=== PATIENT | female | born 2005 | race Caucasian/White ===

== ENCOUNTER 2023-02-23 15:20 | Outpatient (OUT) | payer OTHER, SELFPAY ==
[2023-02-23 15:37] LABS: Basophils Percent Auto 0.1 % (0.2-2.0); Eosinophils Percent Auto 0.4 % (0.9-7.0); Hematocrit 31.9 % (36.0-48.0); Hemoglobin 10.3 g/dL (12.0-16.0); Immature Granulocytes Abs Auto 0.06 10^3/uL (0.00-0.03); Immature Granulocytes Pct Auto 0.7 % (0.0-0.5); Lymphocytes Absolute Auto 2.2 10^3/uL (1.2-3.8); Lymphocytes Percent Auto 24.4 % (20.5-60.0); Mean Corpuscular HGB Conc 32.3 g/dL (29.9-35.2); Mean Corpuscular Hemoglobin 26.3 pg (26.7-34.0); Mean Corpuscular Volume 81.6 fL (81.0-99.0); Mean Platelet Volume 10.2 fL (9.5-13.5); Monocytes Absolute Auto 0.7 10^3/uL (0.3-0.8); Monocytes Percent Auto 8.1 % (1.7-12.0); Neutrophils Absolute Auto 5.9 10^3/uL (1.4-6.5); Neutrophils Percent Auto 66.3 % (43.0-75.0); Platelet Count 259 10^3/uL (150-450); Red Blood Count 3.91 10^6/uL (4.20-5.40); Red Cell Distribution Width 13.9 % (11.0-15.0); White Blood Count 8.9 10^3/uL (4.0-11.0)
== END 2023-02-23 15:21 ==
PROVIDERS: PCP Obstetrics & Gynecology; Visit Provider Physician Assistant
DX: Z34.93 Encounter for supervision of normal pregnancy, unspecified, third trimester (principal)
CPT/HCPCS: 36415; 85025

== ENCOUNTER 2023-03-26 09:39 | Outpatient (OUT) | payer OTHER, SELFPAY ==
--- NOTE | 2023-03-26 09:42 | US_ITS ---
[address] [address] Patient Name: BENJY ZEPEDA MRN: [id number] date: 2005 Sex: F Assigned Patient Location: US Current Patient Location: US Accession/Order Number: [id number] Exam Date: 03/26/2023 09:43 Report Date: 03/26/2023 15:56 At the request of: KATIE BIRMINGHAM Procedure: US OB growth EXAMINATION: US OB growth HISTORY: LGA COMPARISON: Ultrasound anatomy 12/16/2022 FINDINGS: Heart Rate: 136.0 bpm Number: 1.0 Position: CEPHALIC Amniotic Fluid Volume: 19.8 cm Maximum Vertical Pocket: 5.9 cm BIOMETRY: BPD: 8.2 cm cm; 32 weeks 6 days; 12% HC: 30.8 cmcm; 34 weeks 2 days; 17% AC: 32.3 cm cm; 36 weeks 1 days; 94% FL: 7.4 cm cm; 38 weeks 0 days; >97% EFW: 2837.0 grams; 90% FL/AC: 23.0 FL/BPD: 90.9 HC/AC: 1.0 GESTATIONAL AGE: Age by EDC: 34 weeks 2 days TRESA by EDC: 05/05/2023 Age by US: 35 weeks 2 days TRESA by US: 04/28/2023 US/US OB growth IMPRESSION: 1. Single live intrauterine with growth detailed above. 2. Femur length is greater than 97th percentile. Electronically authenticated by: LINDA FREIRE Date: 03/26/2023 15:56
== END 2023-03-26 09:40 | disposition home or self-care (01) ==
LOC: US 09:40
PROVIDERS: PCP Obstetrics & Gynecology; Visit Provider Obstetrics & Gynecology
DX: O36.63X0 Maternal care for excessive fetal growth, third trimester, not applicable or unspecified (principal); Z3A.34 34 weeks gestation of pregnancy
CPT/HCPCS: 76816

== ENCOUNTER 2023-04-09 20:02 | Outpatient (REF) | payer OTHER, SELFPAY | END 2023-04-09 20:03 | disposition home or self-care (01) | LOC: LAB 20:02 | PROVIDERS: PCP Obstetrics & Gynecology; Visit Provider Obstetrics & Gynecology | DX: Z34.93 Encounter for supervision of normal pregnancy, unspecified, third trimester (principal) | CPT/HCPCS: 87081 ==

== ENCOUNTER 2023-04-23 08:41 | Outpatient (OUT) | payer OTHER, SELFPAY ==
--- NOTE | 2023-04-23 08:44 | US_ITS ---
[address] [address] Patient Name: BENJY ZEPEDA MRN: [id number] date: 2005 Sex: F Assigned Patient Location: US Current Patient Location: US Accession/Order Number: [id number] Exam Date: 04/23/2023 08:44 Report Date: 04/23/2023 15:19 At the request of: KATIE BIRMINGHAM Procedure: US OB growth EXAMINATION: US OB growth HISTORY: LGA COMPARISON: Ultrasound OB growth 03/26/2023 FINDINGS: Heart Rate: 153.0 bpm Number: 1.0 Position: Cephalic Amniotic Fluid Volume: 22.3 cm Maximum Vertical Pocket: 7.5 cm BIOMETRY: BPD: 8.7 cm cm; 35 weeks 1 days; 5% HC: 32.7 cmcm; 37 weeks 1 days; 11% AC: 35.3 cm cm; 39 weeks 2 days; 89% FL: 7.1 cm cm; 36 weeks 1 days; 9% EFW: 3313.9 grams; 52% FL/AC: 20.0 FL/BPD: 81.2 HC/AC: 0.9 GESTATIONAL AGE: Age by EDC: 38 weeks 2 days TRESA by EDC: 05/05/2023 Age by US: 37 weeks 0 days TRESA by US: 05/14/2023 US/US OB growth IMPRESSION: 1. Single live intrauterine with growth detailed above. Electronically authenticated by: LINDA FREIRE Date: 04/23/2023 15:19
== END 2023-04-23 08:42 | disposition home or self-care (01) ==
LOC: US 08:41
PROVIDERS: PCP Obstetrics & Gynecology; Visit Provider Obstetrics & Gynecology
DX: O36.63X0 Maternal care for excessive fetal growth, third trimester, not applicable or unspecified (principal); Z3A.38 38 weeks gestation of pregnancy
CPT/HCPCS: 76816

== ENCOUNTER 2023-04-26 06:50 | Inpatient (IN) | payer OTHER, SELFPAY ==
[2023-04-26] VITALS (34 sets, daily range): BP systolic 110–168; BP diastolic 55–91; PULSE 71–136; RESP 16; TEMP 36
[2023-04-26 07:47] LABS: Hematocrit 34.5 % (36.0-48.0); Hemoglobin 11.1 g/dL (12.0-16.0); Mean Corpuscular HGB Conc 32.2 g/dL (29.9-35.2); Mean Corpuscular Hemoglobin 24.2 pg (26.7-34.0); Mean Corpuscular Volume 75.2 fL (81.0-99.0); Mean Platelet Volume 11.8 fL (9.5-13.5); Platelet Count 195 10^3/uL (150-450); Red Blood Count 4.59 10^6/uL (4.20-5.40); Red Cell Distribution Width 18.8 % (11.0-15.0); White Blood Count 9.9 10^3/uL (4.0-11.0)
[2023-04-26 07:58] LABS: Cannabinoid Screen Urine NEGATIVE (NEGATIVE); Cocaine Screen Urine NEGATIVE (NEGATIVE); Phencyclidine Screen Urine NEGATIVE (NEGATIVE)
[2023-04-26 07:59] LABS: Amphetamine Screen Urine NEGATIVE (NEGATIVE); Barbiturates Screen Urine NEGATIVE (NEGATIVE); Benzodiazepines Screen Urine NEGATIVE (NEGATIVE); Buprenorphine Screen Urine NEGATIVE (NEGATIVE); Methadone Screen Urine NEGATIVE (NEGATIVE); Methamphetamines Screen Urine NEGATIVE (NEGATIVE); Opiate Screen Urine NEGATIVE (NEGATIVE); Oxycodone Screen Urine NEGATIVE (NEGATIVE); Tricyclic Antidepressant Urine NEGATIVE (NEGATIVE)
[2023-04-26] MEDS: 0.9 % SODIUM CHLORIDE 1,000 ML 125 ML IV (08:10)
--- NOTE | 2023-04-26 09:12 | P.OBHP_ITS ---
OB - H&P: HPI History of Present Illness Chief complaint: HAVING CONTRACTIONS ABOUT 5 MINUTES APART : 1 Para: 0 Gestational age based on last menstrual period: 38 wks 5 days History of Present care: good care Medical complications OB: none Labs Blood type: O (+) positive Rubella: immune RPR/VDLR: nonreactive GBS status: negative HBsAG: negative Review of Systems ROS Status of ROS 10 or more systems reviewed and unremarkable except as noted in history and below Meds Home Medications and Allergies Allergies Allergy/AdvReac Type Severity Reaction Status Date / Time No Known Drug Allergies Allergy Verified 04/26/23 07:37 Exam Narrative Exam Narrative: Healthy Constitutional Vital Signs, click to edit/add: Last Vital Signs Temp 96.8 F L 04/26/23 07:11 Pulse 86 04/26/23 07:12 BP 127/83 04/26/23 07:12 Documenting provider has reviewed patient's vital signs: yes Common normals: no apparent distress, average body habitus, oriented x3, no limitations, healthy appearing, alert and well nourished General appearance: cooperative and well developed Orientation/consciousness: Yes awake, Yes oriented to person, Yes oriented to place and Yes oriented to time HENMT Common normals: normocephalic, head/scalp atraumatic, hearing grossly normal bilaterally, external ears normal, EACs normal, TMs normal bilaterally, external nose normal, nasal mucous membranes and turbinates normal, moist oral mucous membranes, oropharynx normal, dentition normal and gingiva normal Eye Common normals: PERRL, EOMs intact bilaterally, conjunctivae normal, no scleral icterus, no papilledema, normal visual clarke by confrontation and fundi normal bilaterally Neck & C-Spine Common normals: full ROM, no lymphadenopathy, supple, no meningeal signs, no JVD, thyroid normal and no carotid bruits Lymph Lymphatic: no lymphadenopathy noted Chest Common normals: inspection of chest normal, palpation of chest normal, inspection of breasts normal and palpation of breasts normal Respiratory Common normals: normal respiratory effort, no retractions, no use of accessory muscles, clear to auscultation bilaterally and percussion normal Cardio Common normals: no JVD, regular rate, regular rhythm, S1 normal heart sound, S2 normal heart sound, no gallops, no clicks, no murmurs, no rub and peripheral pulses 2+ throughout GI Common normals: Normal to inspection, nondistended, normoactive bowel sounds present, soft to palpation and non-tender Other: Gravid Common normals: no CVA tenderness, external appearance normal, appearance of the vagina normal, appearance of the cervix normal, bimanual exam normal, adnexae non-tender and no adnexal masses Other: 7cm, bulging bag, VTX Back & Pelvis Common normals: no CVA tenderness, thoracic and lumbar spine normal to insp ection, no thoracic nor lumbar tenderness, thoraco-lumbar ROM normal and straight leg raise negative bilaterally Extremity Common normals: normal to inspection, full ROM, normal capillary refill, no joint enlargement, no clubbing, cyanosis or edema, no calf tenderness and no pedal edema Neuro Kim Coma Scale: document GCS findings Common normals: oriented x3, CN's II-XII intact bilaterally, moves all extremities, no focal motor deficits, no sensory deficits noted, deep tendon reflexes 2+ bilaterally and gait normal Psych Common normals: mental status grossly normal, thought process normal, cooperative, affect normal, speech normal, activity/motor behavior normal, denies hallucinations, denies homicidal ideation and denies suicidal ideation Results Labs Labs: Short CBC 04/26/23 Range/Units 07:15 WBC 9.9 (4.0-11.0) 10^3/uL Hgb 11.1 L (12.0-16.0) g/dL Hct 34.5 L (36.0-48.0) % Plt Count 195 (150-450) 10^3/uL Additional Findings Additional findings: EFM- reactive Contractions every 2-4min OB - A/P Assessment and Plan (1) Term : Plan Term in labor Options discussed with patient Amniotomy done without complications -clear fluid , -2
--- NOTE | 2023-04-26 09:27 | PM.OBPNL ---
Pelvic Exam Dilation (cm): 7 Effacement (%): 100 Contractions Contraction pattern: Irregular Contraction intensity: Moderate Infant station: -2 status: Category I Assessment and Plan Assessment: active labor Plan: continuous present management
--- NOTE | 2023-04-26 11:29 | PM.OBPNL ---
Pain Control Pain control: tolerating well Pelvic Exam Dilation (cm): 7 Comments: per nurse, amniotic fluid - light mec Contractions Contraction pattern: Irregular Contraction intensity: Moderate Infant station: -2 status: Category I Assessment and Plan Assessment: active labor Plan: other Comments: ok to add pitocin per protocol
[2023-04-26] MEDS: OXYTOCIN/0.9 % SODIUM CHLORIDE 10 UNITS/500 ML PLAST..BAG 6 UNIT IV (11:45)
[2023-04-26] MEDS: ROPIVACAINE HCL/PF 400 MG/200 ML PREMIX 10 MG EPIDURAL (13:02)
--- NOTE | 2023-04-26 14:39 | PM.OBPNL ---
Pain Control Pain control: epidural Comments: More comfortable but is still feeling contractions Pelvic Exam Dilation (cm): 7 Effacement (%): 80 Comments: -1 station Contractions Monitor mode: External Contraction pattern: Irregular Contraction intensity: Moderate station: -2 Amniotic membrane status: Ruptured status: Category II Comments: Occas variables with contractions with rapid resolution, good variability, normal baseline Assessment and Plan Pitocin rate (mU/min): 2 Assessment: active labor Plan: other (continue augmentation) Comments: Forebag ruptured, clear fluid, ?meconium? Farooq in place patient counseled, to continue pitocin augmenation
--- NOTE | 2023-04-26 18:29 | PM.OBPRCVD ---
Procedure Procedure: Intrapartal events: Prolonged Active Phase Induction method: none Delivery augmentation: rupture of membranes and pitocin Delivery monitor: external FHT Route of delivery: Episiotomy Description: none Laceration description: perineal - 2nd degree Delivery repair: Vicryl Estimated blood loss (mL): 150 Anesthesia type: Epidural Disposition: no change Complications: None Narrative: Patient with increase pressure with anterior lip. Reduced manually without difficulties with patient pushing. viable male infant, JAH, without difficulties. cord around lower right leg. spontaneous cry at delivery, mouth and nares bulb suctioned 2nd degree perineal tear repaired with 1% lidocaine and 3-0 Vicryl in the usual fashion. Infant Delivery date: 04/26/23 Gender: male presentation: vertex Placental delivery description: Spontaneous and Normal Configuration cord description: 3 Vessels and Around Extremity x1 cord description comment: lower right leg heart rate - 1 minute: 100 bpm or Greater respiratory effort - 1 minute: Spontaneous/Strong Cry muscle tone - 1 minute: Active Movement reflex response - 1 minute: Minimal Response color - 1 minute: Bluish Hands or Feet total score - 1 minute: 8 heart rate - 5 minute: 100 bpm or Greater respiratory effort - 5 minute: Spontaneous/Strong Cry muscle tone - 5 minute: Active Movement reflex response - 5 minute: Prompt Response color - 5 minute: Bluish Hands or Feet total score - 5 minute: 9
--- NOTE | 2023-04-26 19:19 | W.PC.ACHO ---
Registration Status: ADM ANAM Primary Language: Preferred Language: Faroese Report received at 1910. Active Medications Generic Name Dose Route Start Last Admin Trade Name Freq PRN Reason Stop Dose Admin Acetaminophen 650 mg 04/26/23 18:38 Acetaminophen 325 Mg Tablet PO Q6H PRN Mild Pain Al Hydroxide/Mg Hydroxide 2,400 mg 04/26/23 18:38 Magnesium Hydroxide 2,400 Mg/10 Ml Oral.Susp PO Q6H PRN Dyspepsia Benzocaine/Menthol 1 applic 04/26/23 18:38 Benzocaine/Menthol 85 Gram Bottle TOPICAL DIRECTED PRN Pain Docusate Sodium 100 mg 04/27/23 09:00 Docusate Sodium 100 Mg Capsule PO BID DEYSI Fentanyl Citrate 100 mcg 04/26/23 11:55 Fentanyl Citrate/Pf 100 Mcg/2 Ml Vial EPIDURAL Q4H PRN Pain Sodium Chloride 1,000 mls @ 125 mls/hr 04/26/23 07:45 04/26/23 18:05 Sodium Chloride 0.9% 1,000 Ml IV Infused .Q8H DEYSI Infusion Oxytocin/Sodium Chloride 10 units in 500 mls @ 6 mls/hr 04/26/23 11:30 04/26/23 18:00 Pitocin 10 Unit/500 Ml-Ns IV Infused Q24H DEYSI Infusion Protocol 2 MILLIUNIT/MIN Ropivacaine/Sodium Chloride 400 mg in 200 mls @ 6 mls/hr 04/26/23 12:00 04/26/23 13:02 Naropin 0.2% 400 Mg/200 Ml Bag EPIDURAL 10 ml/hr Q24H DEYSI 10 mls/hr Administration Oxytocin 20 unit/ Sodium 1,002 mls @ 125 mls/hr 04/26/23 18:45 04/26/23 18:05 Chloride IV 04/27/23 02:44 125 ml/hr Q8H DEYSI 125 mls/hr Administration Ibuprofen 600 mg 04/26/23 18:38 Ibuprofen 600 Mg Tablet PO Q6H PRN Moderate Pain Lidocaine 5 ml 04/26/23 07:37 Lidocaine Viscous 2% 15 Ml Topical Solution TOPICAL ONCE PRN Pain Lidocaine 1 ml 04/26/23 07:37 Lidocaine Hcl 1% 200 Mg/20 Ml Mdv INJ ONCE PRN Pain Naloxone HCl 0.4 mg 04/26/23 18:38 Naloxone Hcl 0.4 Mg/Ml Vial IV ONCE PRN Opiate Reversal Ondansetron HCl 4 mg 04/26/23 07:37 Ondansetron Pf 4 Mg/2 Ml Vial IV Q6H PRN Nausea And Vomiting Ondansetron HCl 4 mg 04/26/23 07:37 Ondansetron 4 Mg Rapdis Tablet SL Q6H PRN Nausea And Vomiting Oxytocin 10 unit 04/26/23 07:37 Oxytocin 10 Unit/Ml Vial IM ONCE PRN Bleeding Simethicone 80 mg 04/26/23 18:38 Simethicone 80 Mg Tab.Chew PO QID PRN Abdominal Distention Witch Gia/Glycerin 1 each 04/26/23 18:38 Glycerin/Witch Gia 1 Each Jar TOPICAL DIRECTED PRN Pain Diet Category Date Time Status Regular Consistency Diet Diet 04/26/23 Breakfast Active IV Insertion/Site Date of IV Line Insertion [20g 04/26/23 left Hand] IV Insertion Time [20g left 08:00 Hand]
[2023-04-26] MEDS: IBUPROFEN 600 MG TABLET PO (19:42)
[2023-04-27] VITALS (7 sets, daily range): BP systolic 116–127; BP diastolic 56–70; PULSE 76–85; RESP 16–76; TEMP 36.8–36.9
[2023-04-27 04:56] LABS: Basophils Percent Auto 0.2 % (0.2-2.0); Eosinophils Percent Auto 0.2 % (0.9-7.0); Hematocrit 27.5 % (36.0-48.0); Hemoglobin 8.6 g/dL (12.0-16.0); Immature Granulocytes Abs Auto 0.05 10^3/uL (0.00-0.03); Immature Granulocytes Pct Auto 0.4 % (0.0-0.5); Lymphocytes Absolute Auto 2.7 10^3/uL (1.2-3.8); Lymphocytes Percent Auto 22.8 % (20.5-60.0); Mean Corpuscular HGB Conc 31.3 g/dL (29.9-35.2); Mean Corpuscular Volume 76.6 fL (81.0-99.0); Mean Platelet Volume 11.1 fL (9.5-13.5); Monocytes Absolute Auto 0.6 10^3/uL (0.3-0.8); Monocytes Percent Auto 5.4 % (1.7-12.0); Neutrophils Absolute Auto 8.4 10^3/uL (1.4-6.5); Platelet Count 201 10^3/uL (150-450); Red Blood Count 3.59 10^6/uL (4.20-5.40); Red Cell Distribution Width 18.7 % (11.0-15.0); White Blood Count 11.9 10^3/uL (4.0-11.0)
[2023-04-27] MEDS: IBUPROFEN 600 MG TABLET PO ×3 (06:33→22:30)
--- NOTE | 2023-04-27 07:18 | W.PC.ACHO ---
Registration Status: ADM ANAM Primary Language: Preferred Language: [place] Citizen Report given 0700. Active Medications Generic Name Dose Route Start Last Admin Trade Name Freq PRN Reason Stop Dose Admin Acetaminophen 650 mg 04/26/23 18:38 Acetaminophen 325 Mg Tablet PO Q6H PRN Mild Pain Al Hydroxide/Mg Hydroxide 2,400 mg 04/26/23 18:38 Magnesium Hydroxide 2,400 Mg/10 Ml Oral.Susp PO Q6H PRN Dyspepsia Benzocaine/Menthol 1 applic 04/26/23 18:38 04/26/23 22:16 Benzocaine/Menthol 85 Gram Bottle TOPICAL 1 applic DIRECTED PRN Administration Pain Docusate Sodium 100 mg 04/27/23 09:00 Docusate Sodium 100 Mg Capsule PO BID DEYSI Fentanyl Citrate 100 mcg 04/26/23 11:55 Fentanyl Citrate/Pf 100 Mcg/2 Ml Vial EPIDURAL Q4H PRN Pain Sodium Chloride 1,000 mls @ 125 mls/hr 04/26/23 07:45 04/26/23 18:05 Sodium Chloride 0.9% 1,000 Ml IV Infused .Q8H DEYSI Infusion Oxytocin/Sodium Chloride 10 units in 500 mls @ 6 mls/hr 04/26/23 11:30 04/26/23 18:00 Pitocin 10 Unit/500 Ml-Ns IV Infused Q24H DEYSI Infusion Protocol 2 MILLIUNIT/MIN Ropivacaine/Sodium Chloride 400 mg in 200 mls @ 6 mls/hr 04/26/23 12:00 04/26/23 13:02 Naropin 0.2% 400 Mg/200 Ml Bag EPIDURAL 10 ml/hr Q24H DEYSI 10 mls/hr Administration Ibuprofen 600 mg 04/26/23 18:38 04/27/23 06:33 Ibuprofen 600 Mg Tablet PO 600 mg Q6H PRN Administration Moderate Pain Lidocaine 5 ml 04/26/23 07:37 Lidocaine Viscous 2% 15 Ml Topical Solution TOPICAL ONCE PRN Pain Lidocaine 1 ml 04/26/23 07:37 Lidocaine Hcl 1% 200 Mg/20 Ml Mdv INJ ONCE PRN Pain Naloxone HCl 0.4 mg 04/26/23 18:38 Naloxone Hcl 0.4 Mg/Ml Vial IV ONCE PRN Opiate Reversal Ondansetron HCl 4 mg 04/26/23 07:37 Ondansetron Pf 4 Mg/2 Ml Vial IV Q6H PRN Nausea And Vomiting Ondansetron HCl 4 mg 04/26/23 07:37 Ondansetron 4 Mg Rapdis Tablet SL Q6H PRN Nausea And Vomiting Oxytocin 10 unit 04/26/23 07:37 Oxytocin 10 Unit/Ml Vial IM ONCE PRN Bleeding Simethicone 80 mg 04/26/23 18:38 Simethicone 80 Mg Tab.Chew PO QID PRN Abdominal Distention Witch Gia/Glycerin 1 each 04/26/23 18:38 04/26/23 22:16 Glycerin/Witch Gia 1 Each Jar TOPICAL 1 each DIRECTED PRN Administration Pain Diet Category Date Time Status Regular Consistency Diet Diet 04/26/23 Breakfast Active IV Insertion/Site Date of IV Line Insertion [20g 04/26/23 left Hand] IV Insertion Time [20g left 08:00 Hand] Respiratory Oxygen Delivery Method Room Air Oxygen Delivery Method Room Air Oxygen Delivery Method Room Air
[2023-04-27] MEDS: DOCUSATE SODIUM 100 MG CAPSULE PO ×2 (08:34→22:30)
--- NOTE | 2023-04-27 19:30 | W.PC.ACHO ---
Registration Status: ADM IN Primary Language: Preferred Language: Ukrainian Active Medications Generic Name Dose Route Start Last Admin Trade Name Freq PRN Reason Stop Dose Admin Acetaminophen 650 mg 04/26/23 18:38 Acetaminophen 325 Mg Tablet PO Q6H PRN Mild Pain Al Hydroxide/Mg Hydroxide 2,400 mg 04/26/23 18:38 Magnesium Hydroxide 2,400 Mg/10 Ml Oral.Susp PO Q6H PRN Dyspepsia Benzocaine/Menthol 1 applic 04/26/23 18:38 04/26/23 22:16 Benzocaine/Menthol 85 Gram Bottle TOPICAL 1 applic DIRECTED PRN Administration Pain Docusate Sodium 100 mg 04/27/23 09:00 04/27/23 08:34 Docusate Sodium 100 Mg Capsule PO 100 mg BID DEYSI Administration Fentanyl Citrate 100 mcg 04/26/23 11:55 Fentanyl Citrate/Pf 100 Mcg/2 Ml Vial EPIDURAL Q4H PRN Pain Sodium Chloride 1,000 mls @ 125 mls/hr 04/26/23 07:45 04/26/23 18:05 Sodium Chloride 0.9% 1,000 Ml IV Infused .Q8H DEYSI Infusion Oxytocin/Sodium Chloride 10 units in 500 mls @ 6 mls/hr 04/26/23 11:30 04/26/23 18:00 Pitocin 10 Unit/500 Ml-Ns IV Infused Q24H DEYSI Infusion Protocol 2 MILLIUNIT/MIN Ropivacaine/Sodium Chloride 400 mg in 200 mls @ 6 mls/hr 04/26/23 12:00 04/26/23 13:02 Naropin 0.2% 400 Mg/200 Ml Bag EPIDURAL 10 ml/hr Q24H DEYSI 10 mls/hr Administration Ibuprofen 600 mg 04/26/23 18:38 04/27/23 16:48 Ibuprofen 600 Mg Tablet PO 600 mg Q6H PRN Administration Moderate Pain Lidocaine 5 ml 04/26/23 07:37 Lidocaine Viscous 2% 15 Ml Topical Solution TOPICAL ONCE PRN Pain Lidocaine 1 ml 04/26/23 07:37 Lidocaine Hcl 1% 200 Mg/20 Ml Mdv INJ ONCE PRN Pain Naloxone HCl 0.4 mg 04/26/23 18:38 Naloxone Hcl 0.4 Mg/Ml Vial IV ONCE PRN Opiate Reversal Ondansetron HCl 4 mg 04/26/23 07:37 Ondansetron Pf 4 Mg/2 Ml Vial IV Q6H PRN Nausea And Vomiting Ondansetron HCl 4 mg 04/26/23 07:37 Ondansetron 4 Mg Rapdis Tablet SL Q6H PRN Nausea And Vomiting Oxytocin 10 unit 04/26/23 07:37 Oxytocin 10 Unit/Ml Vial IM ONCE PRN Bleeding Simethicone 80 mg 04/26/23 18:38 Simethicone 80 Mg Tab.Chew PO QID PRN Abdominal Distention Witch Gia/Glycerin 1 each 04/26/23 18:38 04/26/23 22:16 Glycerin/Witch Gia 1 Each Jar TOPICAL 1 each DIRECTED PRN Administration Pain Respiratory Oxygen Delivery Method Room Air Oxygen Delivery Method Room Air Oxygen Delivery Method Room Air Oxygen Delivery Method Room Air Oxygen Delivery Method Room Air
[2023-04-28 00:41] VITALS: BP 132/74; PULSE 95; TEMP 35.9
--- NOTE | 2023-04-28 07:10 | W.PC.ACHO ---
Registration Status: ADM IN Primary Language: Preferred Language: Latvian Active Medications Generic Name Dose Route Start Last Admin Trade Name Frandyq PRN Reason Stop Dose Admin Acetaminophen 650 mg 04/26/23 18:38 Acetaminophen 325 Mg Tablet PO Q6H PRN Mild Pain Al Hydroxide/Mg Hydroxide 2,400 mg 04/26/23 18:38 Magnesium Hydroxide 2,400 Mg/10 Ml Oral.Susp PO Q6H PRN Dyspepsia Benzocaine/Menthol 1 applic 04/26/23 18:38 04/26/23 22:16 Benzocaine/Menthol 85 Gram Bottle TOPICAL 1 applic DIRECTED PRN Administration Pain Docusate Sodium 100 mg 04/27/23 09:00 04/27/23 22:30 Docusate Sodium 100 Mg Capsule PO 100 mg BID DEYSI Administration Fentanyl Citrate 100 mcg 04/26/23 11:55 Fentanyl Citrate/Pf 100 Mcg/2 Ml Vial EPIDURAL Q4H PRN Pain Sodium Chloride 1,000 mls @ 125 mls/hr 04/26/23 07:45 04/26/23 18:05 Sodium Chloride 0.9% 1,000 Ml IV Infused .Q8H DEYSI Infusion Oxytocin/Sodium Chloride 10 units in 500 mls @ 6 mls/hr 04/26/23 11:30 04/26/23 18:00 Pitocin 10 Unit/500 Ml-Ns IV Infused Q24H DEYSI Infusion Protocol 2 MILLIUNIT/MIN Ropivacaine/Sodium Chloride 400 mg in 200 mls @ 6 mls/hr 04/26/23 12:00 04/26/23 13:02 Naropin 0.2% 400 Mg/200 Ml Bag EPIDURAL 10 ml/hr Q24H DEYSI 10 mls/hr Administration Ibuprofen 600 mg 04/26/23 18:38 04/27/23 22:30 Ibuprofen 600 Mg Tablet PO 600 mg Q6H PRN Administration Moderate Pain Lidocaine 5 ml 04/26/23 07:37 Lidocaine Viscous 2% 15 Ml Topical Solution TOPICAL ONCE PRN Pain Lidocaine 1 ml 04/26/23 07:37 Lidocaine Hcl 1% 200 Mg/20 Ml Mdv INJ ONCE PRN Pain Naloxone HCl 0.4 mg 04/26/23 18:38 Naloxone Hcl 0.4 Mg/Ml Vial IV ONCE PRN Opiate Reversal Ondansetron HCl 4 mg 04/26/23 07:37 Ondansetron Pf 4 Mg/2 Ml Vial IV Q6H PRN Nausea And Vomiting Ondansetron HCl 4 mg 04/26/23 07:37 Ondansetron 4 Mg Rapdis Tablet SL Q6H PRN Nausea And Vomiting Oxytocin 10 unit 04/26/23 07:37 Oxytocin 10 Unit/Ml Vial IM ONCE PRN Bleeding Simethicone 80 mg 04/26/23 18:38 Simethicone 80 Mg Tab.Chew PO QID PRN Abdominal Distention Witch Gia/Glycerin 1 each 04/26/23 18:38 04/26/23 22:16 Glycerin/Witch Gia 1 Each Jar TOPICAL 1 each DIRECTED PRN Administration Pain Respiratory Oxygen Delivery Method Room Air Oxygen Delivery Method Room Air Oxygen Delivery Method Room Air
[2023-04-28] MEDS: DOCUSATE SODIUM 100 MG CAPSULE PO (09:02)
[2023-04-28 09:06] VITALS: BP 124/73; PULSE 77
[2023-04-28 09:09] VITALS: BP 124/73; PULSE 77; RESP 14; TEMP 36.5
--- NOTE | 2023-04-28 11:44 | P.OBPN_ITS ---
OB - PN: Subj Subjective Patient comments: no complaints Campbell status: doing well Exam Constitutional Vital Signs, click to edit/add: Last Vital Signs Temp 97.7 F 04/28/23 09:09 Pulse 77 04/28/23 09:09 Resp 14 04/28/23 09:09 BP 124/73 04/28/23 09:09 O2 Del Method Room Air 04/28/23 00:40 Documenting provider has reviewed patient's vital signs: yes Common normals: no apparent distress Respiratory Common normals: clear to auscultation bilaterally Cardio Common normals: regular rate and regular rhythm GI Common normals: Normal to inspection, nondistended, normoactive bowel sounds present Extremity Common normals: no clubbing, cyanosis or edema OB - PN: A/P Assessment and Plan (1) Term : Plan - Vaginal Delivery day: 2 Plan: routine care, discharge home and follow up 6 weeks Time Spent with Patient Time: Total time spent is greater than 50% in coordination of care (as documented) at patient's floor/unit and/or counseling patient: Total time spent with greater than 50% in coordination of care (as documented) at patient's floor/unit and/or counseling patient: less than 15 minutes
== END 2023-04-28 13:55 | disposition home or self-care (01) | DRG 560 ==
PROVIDERS: Admitting Provider Obstetrics & Gynecology Gynecology; PCP Obstetrics & Gynecology; Visit Provider Obstetrics & Gynecology Gynecology
DX: O99.334 Smoking (tobacco) complicating childbirth (principal); Z3A.38 38 weeks gestation of pregnancy; F17.290 Nicotine dependence, other tobacco product, uncomplicated; O70.1 Second degree perineal laceration during delivery; Z37.0 Single live birth
CPT/HCPCS: 36415; 51702; 76816; 80307; 85025; 85027; 86850; 86900; 86901; 96365; 96366; 96376; C1713

== ENCOUNTER 2023-04-30 08:04 | Outpatient (RCR) | payer OTHER, SELFPAY ==
[2023-04-30 15:06] VITALS: BP 134/87; PULSE 100; RESP 18; TEMP 37; O2SAT 97
== END 2023-04-30 15:00 | disposition home or self-care (01) ==
LOC: FBCO 08:04
PROVIDERS: PCP Obstetrics & Gynecology; Visit Provider Obstetrics & Gynecology
DX: Z39.2 Encounter for routine postpartum follow-up (principal)

== ENCOUNTER 2023-05-04 08:30 | Outpatient (RCR) | payer OTHER, SELFPAY | END 2023-05-04 15:30 | disposition home or self-care (01) | LOC: FBCO 08:30 | PROVIDERS: PCP Obstetrics & Gynecology; Visit Provider Obstetrics & Gynecology | DX: Z39.1 Encounter for care and examination of lactating mother (principal) | CPT/HCPCS: G0463 ==

== ENCOUNTER 2023-06-16 08:47 | Outpatient (OUT) | payer OTHER, SELFPAY ==
--- NOTE | 2023-06-16 13:35 | PC.NURSE ---
Yoni and 7 week old Zi arrive for support. Yoni called concerned about milk supply. Arrives today stating I feel a little diaz than I did the other day, but my breasts are overall much softer than before weight gain is steady and appropriate. is well nourished, smiling and alert. Reviewed expected weight gain for first year of life. Mom pleased with infant progress and gain. Mom reports sometimes he pulls and cries at the breast and my breast feel very soft and like there is no milk for the baby . Mom states I had stopped bleeding after the delivery and about 10 days later started bleeding again Pt assumes return to menses. Was also started on Control Pills at 6 week visit. Does not know which pill she started. Reviewed impact cycles can have on a milk supple and will recover once hormone shift. Discussed possible impact of BCP on supply at this time pt not willing to stop BCP. Reviewed ways to support or maintain supply to allow longer duration for . Discussed use of galactagogues to support supply. Will discuss options with sig. other. Aware to call for further questions or concerns.
== END 2023-06-16 11:05 | disposition home or self-care (01) ==
LOC: FBCO 08:48
PROVIDERS: Visit Provider Obstetrics & Gynecology
DX: Z39.1 Encounter for care and examination of lactating mother (principal)
CPT/HCPCS: G0463